=== PATIENT | female | born 1990 | race African-American/Black ===

== ENCOUNTER 2018-07-21 15:00 | Emergency (ER) | payer OTHER ==
[~2018-07-21] VITALS: Ht 165.1 cm; Wt 90.9 kg
[2018-07-21] MEDS ORDERED: prenatal (15:15)
--- NOTE | 2018-07-21 15:50 | REP ---
RIGHT SHOULDER, THREE VIEWS: There is no evidence of an acute fracture, dislocation or intrinsic bone disease. IMPRESSION: No fracture or dislocation. Electronically Signed by Chi Botello MD 07/21/2018 05:11 P
[2018-07-21] MEDS ORDERED: DICL75TA PO (17:42)
[2018-07-21] MEDS ORDERED: BACL10TA2 PO (17:42)
[2018-07-21 17:52] VITALS: BP 123/81
== END 2018-07-21 17:53 | disposition home or self-care (01) ==
LOC: M ED 15:00
DX: S46.911A Strain of unspecified muscle, fascia and tendon at shoulder and upper arm level, right arm, initial encounter (principal); W01.0XXA Fall on same level from slipping, tripping and stumbling without subsequent striking against object, initial encounter; Y92.480 Sidewalk as the place of occurrence of the external cause

== ENCOUNTER → 2019-06-30 | Outpatient (REF) | payer OTHER ==
[~2019-06-30] MED LIST: BACL10TA2 PO; DICL75TA PO; prenatal
== END ==
LOC: M LAB REF 12:23
PROVIDERS: ATTEND Obstetrics & Gynecology
DX: O36.80X0 Pregnancy with inconclusive fetal viability, not applicable or unspecified (principal); Z3A.00 Weeks of gestation of pregnancy not specified

== ENCOUNTER → 2019-08-10 | Outpatient (REF) | payer OTHER ==
[2019-08-10 17:45] LABS: HEMOGLOBIN 12.3 g/dl (12.0-15.5); MEAN CORPUSCULAR HEMOGLOBIN 27.7 pg (27.0-33.0); MEAN CORPUSCULAR HGB CONC 33.2 g/dl (32.0-36.5); MEAN CORPUSCULAR VOLUME 83.3 fl (80.0-96.0); PLATELET COUNT, AUTOMATED 162 10^3/uL (150-450); RED BLOOD COUNT 4.44 10^6/uL (4.00-5.40); WHITE BLOOD COUNT 10.1 10^3/uL (4.0-10.0)
[2019-08-11 10:13] LABS: HIV 1&2 SCREEN CENTAUR NEGATIVE (NEGATIVE); RUBELLA IgG QUALITATIVE IMMUNE (IMMUNE)
[2019-08-12 11:16] LABS: HEPATITIS C VIRUS ABY INDEX < 0.0 INDEX (<0.8)
== END ==
LOC: M LAB REF 17:22
PROVIDERS: ATTEND Obstetrics & Gynecology
DX: Z34.82 Encounter for supervision of other normal pregnancy, second trimester (principal)

== ENCOUNTER → 2019-08-16 | Outpatient (REF) | payer OTHER ==
[2019-08-16 20:02] LABS: CREATININE, URINE 53.5 MG/DL; URINE TOTAL PROTEIN 5.1 MG/DL (0-12)
[2019-08-16 22:23] LABS: CREATININE 24 HOUR, URINE 1765.5 MG/24HR (600-1800); TOTAL PROTEIN 24 HOUR URINE 168.3 MG/24HR (50-150)
== END ==
LOC: M LAB REF 19:17
PROVIDERS: ATTEND Obstetrics & Gynecology
DX: O24.112 Pre-existing type 2 diabetes mellitus, in pregnancy, second trimester (principal); Z3A.00 Weeks of gestation of pregnancy not specified